=== PATIENT | male | born 1990 | race Caucasian/White ===

== ENCOUNTER 2017-02-18 14:09 | Emergency (ER) | payer BC ==
[~2017-02-18] VITALS: Ht 187.9 cm; Wt 97.5 kg
[~2017-02-18 14:09] MED LIST: AMOXICILLIN500 MG PO; CIPRO500 MG PO; DOXYCYCLINE MO100 MG PO; K-DUR 20MEQ20 MEQ PO; KEFLEX500 MG PO; ZOFRAN ODT8 MG PO
[2017-02-18] MEDS ORDERED: BACTRIM DS 8001 TA1 PO (14:30)
[2017-02-18] MEDS ORDERED: TYLENOL WITH CO1 TA1 PO (14:30)
[2017-02-18] MEDS ORDERED: CEPHALEXIN500 M1 PO (14:30)
== END 2017-02-18 14:38 | disposition home or self-care (01) ==
LOC: ED 14:09
DX: L02.01 Cutaneous abscess of face (principal); F17.200 Nicotine dependence, unspecified, uncomplicated

== ENCOUNTER 2019-05-08 11:39 | Emergency (ER) | payer SELFPAY ==
[~2019-05-08] VITALS: Ht 193 cm; Wt 104.3 kg
[~2019-05-08 11:39] MED LIST changes: +BACTRIM DS 8001 TA1 PO; +CEPHALEXIN500 M1 PO; +TYLENOL WITH CO1 TA1 PO
[2019-05-08] MEDS ORDERED: TOBRADEX 0.1%-0.5 ML OPH (12:39)
== END 2019-05-08 12:50 | disposition home or self-care (01) ==
LOC: ED 11:39
DX: H10.9 Unspecified conjunctivitis (principal); H02.844 Edema of left upper eyelid

== ENCOUNTER 2019-12-04 13:37 | Emergency (ER) | payer SELFPAY ==
[~2019-12-04] VITALS: Ht 187.9 cm; Wt 104.3 kg
[~2019-12-04 13:37] MED LIST changes: +TOBRADEX 0.1%-0.5 ML OPH
[2019-12-04] MEDS ORDERED: Motrin,Rufen800 MG PO (15:20)
== END 2019-12-04 15:46 | disposition home or self-care (01) ==
LOC: ED 13:37
DX: S62.396A Other fracture of fifth metacarpal bone, right hand, initial encounter for closed fracture (principal); Z79.2 Long term (current) use of antibiotics; W22.8XXA Striking against or struck by other objects, initial encounter; Y93.89 Activity, other specified; Y92.098 Other place in other non-institutional residence as the place of occurrence of the external cause; Y99.8 Other external cause status

== ENCOUNTER 2021-06-28 11:09 | Emergency (ER) | payer BC, OTHER ==
[~2021-06-28] VITALS: Wt 108.9 kg
[~2021-06-28 11:09] MED LIST changes: +Motrin,Rufen800 MG PO
[2021-06-28] MEDS ORDERED: CEPHALEXIN500 M1 PO (12:21)
== END 2021-06-28 12:20 | disposition home or self-care (01) ==
LOC: ED 11:09
DX: L01.00 Impetigo, unspecified (principal); Z79.2 Long term (current) use of antibiotics; Z79.899 Other long term (current) drug therapy